=== PATIENT | male | born 1955 | race Caucasian/White ===

== ENCOUNTER 2017-02-18 08:53 | Emergency (ER) | payer BC ==
--- NOTE | ~2017-02-18 | CR169 ---
[facility]. [facility] A Service of [facility] RADIOLOGY TEXT RESULTS PATIENT: DALE GOMES LOCATION: SED : 59 UNIT #: [id number] AGE: [address]: Denys Oliveira MD SEX: M ORDER DR: [id number] [place] [id number] E MR#: [id number] Acc #: [id number] NAME: DALE GOMES : 1955 SEX: M STUDY DATE/TIME: 02/18/2017 9:28 UNIT: SED ROOM: STUDY DESCRIPTION: CR Knee 2 Views Lt Attending Physician: Denys Oliveira M.D. Ordering Physician: Denys Oliveira M.D. Primary Care Physician: Obed Gonzalez Jr., M.D. MEDICAL IMAGING REPORT This report is preliminary unless electronic signature is present. EXAM Left knee 2 views INDICATIONS Left knee pain after falling February 05 COMPARISON STUDIES no comparisons. FINDINGS No joint effusion. No fracture. Mild medial compartment narrowing. No dislocation. IMPRESSION Mild medial compartment narrowing. Otherwise unremarkable Dictated by... Checo Beckford M.D. THIS IS AN ELECTRONICALLY VERIFIED REPORT Checo Beckford M.D. at 02/21/2017 7:32 AM CHECO/miguelito TD: 02/18/2017 12:48 JOB #: [id number] MEDICAL IMAGING REPORT Page 1 of 1
[~2017-02-18 08:53] MED LIST: BACTROBAN22 GM TP; CLEOCIN PO; GLUCOTROL PO; HYDROCHLOROTHIA25 MG PO; LEVEMIR100 U/ML SUBQ; LISINOPRIL5 MG PO; MOTRIN400 MG PO
[2017-02-18] MEDS ORDERED: BYDUREON P2 MG/0.65 (09:01)
== END 2017-02-18 10:47 | disposition home or self-care (01) ==
LOC: SED 08:53
DX: S86.812A Strain of other muscle(s) and tendon(s) at lower leg level, left leg, initial encounter (principal); Z79.4 Long term (current) use of insulin; Z79.899 Other long term (current) drug therapy; W01.0XXA Fall on same level from slipping, tripping and stumbling without subsequent striking against object, initial encounter; Y92.830 Public park as the place of occurrence of the external cause
CPT/HCPCS: 73560; 99283